=== PATIENT | male | born 1960 | race Caucasian/White ===

== ENCOUNTER 2018-08-18 10:01 | Day surgery (SDC) | payer BC ==
[2018-08-18] MEDS ORDERED: MIDAZOLAM 1 MG/ML 2 ML INJ ×2 (12:44)
[2018-08-18] MEDS ORDERED: FENTAnyl 50 MCG/ML VIAL (12:44)
== END 2018-08-18 15:09 | disposition home or self-care (01) ==
LOC: GIL 10:01
DX: Z12.11 Encounter for screening for malignant neoplasm of colon (principal); D12.5 Benign neoplasm of sigmoid colon; K64.8 Other hemorrhoids
CPT/HCPCS: 45380; 88305

== ENCOUNTER 2018-12-20 06:28 | Inpatient (IN) | payer BC ==
[2018-12-20] MEDS: CEFAZOLIN 2 GM/50 ML (PMX) 50 ML IVPB ×3 (07:00→19:56)
[2018-12-20] MEDS: SOD CHLORIDE 0.9% 1,000 ML IV ×3 (07:50→14:34)
[2018-12-20] MEDS ORDERED: LIDOCAINE 2% (SDV) 5 ML INJ (09:36)
[2018-12-20] MEDS ORDERED: ROCURONIUM 50 MG INJ (09:36)
[2018-12-20] MEDS ORDERED: PROPOFOL 20 ML (09:36)
[2018-12-20] MEDS: BUPIVACAINE 0.25% (MPF) 30 ML INJ (10:36)
[2018-12-20] MEDS: POLYMYXIN/BACITRACIN 1L IRRIG (10:36)
[2018-12-20] MEDS ORDERED: ONDANSETRON 4 MG INJ (10:42)
[2018-12-20] MEDS ORDERED: DEXAMETHASONE 4 MG/ML 5 ML INJ (10:42)
[2018-12-20] MEDS ORDERED: SUGAMMADEX SODIUM 200 MG/2 ML VIAL IV (11:00)
[2018-12-20] MEDS ORDERED: HYDROmorphONE 1 MG/5 ML IV SYRINGE IV ×2 (11:13→11:30)
[2018-12-20] MEDS: HYDROmorphONE 1 MG/5 ML IV SYRINGE IV ×4 (11:21→11:44)
[2018-12-20] MEDS ORDERED: hydrALAzine 20 MG INJ IV (11:30)
[2018-12-20] MEDS ORDERED: KETOROLAC 30 MG INJ IV (11:30)
[2018-12-20] MEDS ORDERED: MEPERIDINE 25 MG INJ IV (11:30)
[2018-12-20] MEDS ORDERED: FENTAnyl 50 MCG/ML VIAL IV ×2 (11:30)
[2018-12-20] MEDS ORDERED: EPHEDrine 25 MG/5 ML SYG IV (11:30)
[2018-12-20] MEDS ORDERED: LABETALOL HCL 20MG INJ IV (11:30)
[2018-12-20] MEDS ORDERED: DIPHENHYDRAMINE 50 MG INJ IV (11:30)
[2018-12-20] MEDS ORDERED: MIDAZOLAM 1 MG/ML 2 ML INJ IV (11:30)
[2018-12-20] MEDS ORDERED: ALBUTEROL 0.083% (NEB) 2.5 MG/3 ML AMP HHN (11:30)
[2018-12-20] MEDS ORDERED: OXYCODONE/ACETAMINOPHEN (5/325) TAB PO (11:30)
[2018-12-20] MEDS ORDERED: ONDANSETRON 4 MG INJ IV (11:30)
[2018-12-20] MEDS ORDERED: METOCLOPRAMIDE 10 MG INJ IV (11:30)
[2018-12-20] MEDS: FENTAnyl 50 MCG/ML VIAL IV ×3 (11:51→12:07)
[2018-12-20 12:05] LABS: ADD MAN DIFF? NO
[2018-12-20] MEDS: OXYCODONE/ACETAMINOPHEN (5/325) TAB PO (12:05)
[2018-12-20 12:10] LABS: WHITE BLOOD COUNT 8.1 10^3/ul (4.8-10.8)
[2018-12-20 12:10] LABS: BASOPHILS % 0.5 % (0.0-2.0); EOSINOPHILS # 0.1 10^3/ul (0.0-0.5); EOSINOPHILS % 1.7 % (0.0-7.0); HEMATOCRIT 51.5 % (42.0-52.0); HEMOGLOBIN 17.6 g/dl (14.0-18.0); LYMPHOCYTES # 1.5 10^3/ul (0.8-2.9); LYMPHOCYTES % 18.7 % (15.0-51.0); MEAN CORPUSCULAR HEMOGLOBIN 29.3 pg (29.0-33.0); MEAN CORPUSCULAR HGB CONC 34.2 g/dl (32.0-37.0); MEAN CORPUSCULAR VOLUME 85.7 fl (82.0-101.0); MEAN PLATELET VOLUME 10.7 fl (7.4-10.4); MONOCYTE # 0.4 10^3/ul (0.3-0.9); MONOCYTES % 4.8 % (0.0-11.0); NEUTROPHILS % 73.7 % (39.0-77.0); PLATELET COUNT 182 10^3/UL (140-415); RED BLOOD COUNT 6.01 10^6/ul (4.70-6.10); RED CELL DISTRIBUTION WIDTH 13.5 % (11.5-14.5)
[2018-12-20 12:38] LABS: ALANINE AMINOTRANSFERASE 40 IU/L (13-69); ALBUMIN/GLOBULIN RATIO 1.25; ALKALINE PHOSPHATASE 92 IU/L (42-121); ANION GAP 7 (5-13); ASPARTATE AMINO TRANSFERASE 31 IU/L (15-46); BILIRUBIN,INDIRECT 1.3 mg/dl (0-1.1); BILIRUBIN,TOTAL 1.3 mg/dl (0.2-1.3); BLOOD UREA NITROGEN 10 mg/dl (7-20); CARBON DIOXIDE 25 mmol/L (21-31); CHLORIDE 108 mmol/L (97-110); CREATININE 0.87 mg/dl (0.61-1.24); Estimated GFR > 60 mL/min (>60); GLUCOSE 141 mg/dl (70-220); POTASSIUM 4.3 mmol/L (3.5-5.1); SODIUM 140 mmol/L (135-144); TOTAL PROTEIN 7.2 g/dl (6.1-8.1)
[2018-12-20 12:42] LABS: CALCIUM 8.3 mg/dl (8.4-10.2)
[2018-12-20] MEDS ORDERED: NALOXONE (0.4 MG/ML) INJ IV (13:00)
[2018-12-20] MEDS: HYDROmorphONE 0.2 MG/ML PCA IV (14:35)
[2018-12-20] MEDS: HYDROCODONE/APAP (5/325) TAB PO (14:35)
[2018-12-20] MEDS: ONDANSETRON 4 MG INJ IV (22:20)
[2018-12-21] MEDS: SOD CHLORIDE 0.9% 1,000 ML IV ×2 (01:57→13:15)
[2018-12-21] MEDS: CEFAZOLIN 2 GM/50 ML (PMX) 50 ML IVPB ×2 (03:25→11:42)
[2018-12-21] MEDS: HYDROmorphONE 0.2 MG/ML PCA IV (05:09)
[2018-12-21] MEDS: ONDANSETRON 4 MG INJ IV (05:13)
[2018-12-21 07:42] LABS: ADD MAN DIFF? NO
[2018-12-21 07:47] LABS: WHITE BLOOD COUNT 12.8 10^3/ul (4.8-10.8)
[2018-12-21 07:48] LABS: BASOPHILS % 0.2 % (0.0-2.0); HEMATOCRIT 49.3 % (42.0-52.0); HEMOGLOBIN 16.8 g/dl (14.0-18.0); LYMPHOCYTES # 0.8 10^3/ul (0.8-2.9); MEAN CORPUSCULAR HEMOGLOBIN 29.7 pg (29.0-33.0); MEAN CORPUSCULAR HGB CONC 34.1 g/dl (32.0-37.0); MEAN CORPUSCULAR VOLUME 87.3 fl (82.0-101.0); MEAN PLATELET VOLUME 11.2 fl (7.4-10.4); MONOCYTE # 1.1 10^3/ul (0.3-0.9); MONOCYTES % 8.3 % (0.0-11.0); NEUTROPHIL # 10.9 10^3/ul (1.6-7.5); PLATELET COUNT 195 10^3/UL (140-415); RED BLOOD COUNT 5.65 10^6/ul (4.70-6.10); RED CELL DISTRIBUTION WIDTH 13.6 % (11.5-14.5)
[2018-12-21 08:05] LABS: ALANINE AMINOTRANSFERASE 32 IU/L (13-69); ALBUMIN 3.8 g/dl (3.3-4.9); ALBUMIN/GLOBULIN RATIO 1.15; ALKALINE PHOSPHATASE 74 IU/L (42-121); ANION GAP 10 (5-13); ASPARTATE AMINO TRANSFERASE 25 IU/L (15-46); BILIRUBIN,INDIRECT 1.6 mg/dl (0-1.1); BILIRUBIN,TOTAL 1.6 mg/dl (0.2-1.3); BLOOD UREA NITROGEN 12 mg/dl (7-20); CALCIUM 8.2 mg/dl (8.4-10.2); CARBON DIOXIDE 24 mmol/L (21-31); CHLORIDE 107 mmol/L (97-110); CREATININE 0.71 mg/dl (0.61-1.24); Estimated GFR > 60 mL/min (>60); GLUCOSE 131 mg/dl (70-220); POTASSIUM 4.1 mmol/L (3.5-5.1); SODIUM 141 mmol/L (135-144); TOTAL PROTEIN 7.1 g/dl (6.1-8.1)
[2018-12-21] MEDS: HYDROCODONE/APAP (5/325) TAB PO ×2 (16:56→21:47)
[2018-12-21] MEDS: hydrALAzine 20 MG INJ IV (17:59)
[2018-12-21] MEDS: AMLODIPINE 10 MG TAB PO (17:59)
[2018-12-21] MEDS ORDERED: IOHEXOL 100 ML (18:49)
[2018-12-21] MEDS ORDERED: SOD CHLORIDE 0.9% 100 ML (18:49)
[2018-12-21] MEDS: ALBUTEROL/IPRATROPIUM (NEB) 3 ML AMP HHN (23:44)
[2018-12-22] MEDS: SOD CHLORIDE 0.9% 1,000 ML IV (01:09)
[2018-12-22] MEDS: HYDROCODONE/APAP (5/325) TAB PO ×3 (04:13→15:37)
[2018-12-22] MEDS: ALBUTEROL/IPRATROPIUM (NEB) 3 ML AMP HHN ×2 (07:54→14:27)
[2018-12-22] MEDS: AMLODIPINE 10 MG TAB PO (08:54)
[2018-12-22] MEDS: POLYETHYLENE GLYCOL 17 GM PACKET GTB (12:09)
[2018-12-22] MEDS ORDERED: DOCUSATE SODIUM 100 MG CAP PO (21:00)
== END 2018-12-22 19:10 | disposition home or self-care (01) | DRG 354 ==
LOC: SDS 06:28 → PP2 13:12 → SDS 11:27 → PP2 11:27
PROC: 0WUF0JZ Supplement Abdominal Wall with Synthetic Substitute, Open Approach (ICD-10-PCS; principal; 2018-12-20 09:00)
PROC: 0KXL0ZZ Transfer Left Abdomen Muscle, Open Approach (ICD-10-PCS; 2018-12-20 09:00)
PROC: 0KXK0ZZ Transfer Right Abdomen Muscle, Open Approach (ICD-10-PCS; 2018-12-20 09:00)
DX: K42.0 Umbilical hernia with obstruction, without gangrene (principal); J98.11 Atelectasis; K43.6 Other and unspecified ventral hernia with obstruction, without gangrene; E66.9 Obesity, unspecified; Z68.34 Body mass index [BMI] 34.0-34.9, adult
CPT/HCPCS: 71045; 71250; 71275; 80053; 85025; 94640; 94664